=== PATIENT | female | born 1995 | race Two or more races ===

== ENCOUNTER 2017-11-01 02:01 | Emergency (ER) | payer OTHER ==
[2017-11-01] MEDS ORDERED: NORMAL SALINE 1000 ML 1,000 ML IV ONE (03:10)
[2017-11-01] MEDS ORDERED: MORPHINE SULFATE 10 MG/ML INJ IV ONE (03:10)
[2017-11-01] MEDS ORDERED: ONDANSETRON HCL INJ/PF 4 MG/2 ML SDV IV ONE (03:10)
--- NOTE | 2017-11-01 03:11 | ER Document Report ---
ED GI/ - General Chief Complaint: Abdominal Pain Stated Complaint: ABDOMINAL PAIN Time Seen by Provider: 11/01/17 03:03 Notes: Patient is a 22-year-old female who comes emergency department for chief complaint of right lower quadrant pain. She states that pain started at about 5 :30 PM, progressively worsened and became constant. She states that she tried taking stool softeners (she took magnesium citrate), she did have a bowel movement but pain continued to increase. She denies vaginal bleeding or discharge, denies dysuria, denies flank pain, fever, nausea or vomiting. She takes no daily medications. Only past medical history reported is tonsillectomy. TRAVEL OUTSIDE OF THE [place] IN LAST 30 DAYS: No - Related Data Allergies/Adverse Reactions: No Known Allergies Allergy (Unverified 11/01/17 03:11) Past Medical History - General Information source: Patient - Social History Smoking Status: Never Smoker Chew tobacco use (# tins/day): No Frequency of alcohol use: None Drug Abuse: None Lives with: Family Family History: Reviewed & Not Pertinent Patient has suicidal ideation: No Patient has homicidal ideation: No - Medical History Medical History: Negative Renal/ Medical History: Denies: Hx Peritoneal Dialysis Past Surgical History: Reports: Hx Tonsillectomy - Immunizations Immunizations up to date: Yes Hx Diphtheria, Pertussis, Tetanus Vaccination: Yes Review of Systems - Review of Systems Constitutional: No symptoms reported EENT: No symptoms reported Cardiovascular: No symptoms reported Respiratory: No symptoms reported Gastrointestinal: See HPI Genitourinary: No symptoms reported Female Genitourinary: No symptoms reported Musculoskeletal: No symptoms reported Skin: No symptoms reported Hematologic/Lymphatic: No symptoms reported Neurological/Psychological: No symptoms reported Physical Exam - Vital signs Vitals: Temp Pulse Resp BP Pulse Ox 97.6 F 101 H 20 126/64 H 99 11/01/17 02:02 11/01/17 02:02 11/01/17 02:02 11/01/17 02:02 11/01/17 02:02 Interpretation: Normal - General General appearance: Appears well, Alert In distress: None - HEENT Head: Normocephalic, Atraumatic Eyes: Normal Pupils: PERRL - Respiratory Respiratory status: No respiratory distress Chest status: Nontender Breath sounds: Normal Chest palpation: Normal - Cardiovascular Rhythm: Regular Heart sounds: Normal auscultation Murmur: No - Abdominal Inspection: Normal Distension: No distension Bowel sounds: Normal Tenderness: Tender - Patient specifically tender at McBurney's point, this is reproducible. Remaining abdomen is completely benign. No pelvic tenderness noted. No rebound tenderness. Organomegaly: No organomegaly - Back Back: Normal, Nontender. No: Tender - Extremities General upper extremity: Normal inspection, Nontender, Normal ROM, Normal strength General lower extremity: Normal inspection, Nontender, Normal ROM, Normal strength - Neurological Neuro grossly intact: Yes Cognition: Normal Orientation: AAOx4 [place] Coma Scale Eye Opening: Spontaneous [place] Coma Scale Verbal: Oriented [place] Coma Scale Motor: Obeys Commands Mercedes Coma Scale Total: 15 Speech: Normal Cranial nerves: Normal Cerebellar coordination: Normal Motor strength normal: LUE, RUE, LLE, RLE Sensory: Normal - Psychological Associated symptoms: Normal affect, Normal mood - Skin Skin Temperature: Warm Skin Moisture: Dry Skin Color: Normal Course - Re-evaluation Re-evalutation: Patient was specific and reproducible McBurney's point tenderness. Remaining abdomen is benign. CBC, chemistry, urinalysis unremarkable. Patient declines pelvic exam, she also does not report any dysuria, vaginal discharge, or concern about STDs. Decision was made to perform CAT scan to help rule out acute appendicitis. CT showing lymphangitis in the right lower quadrant. Normal appendix. No inflammatory changes otherwise, no acute findings. I discussed this with patient in detail. After discussion decision was made to let the passage of time clarifying the situation, she was treated here for lymph node discomfort with dexamethasone, she will be given Motrin at home, I discussed follow-up and return precautions in detail, patient states satisfaction and agreement. - Vital Signs Vital signs: Temp Pulse Resp BP Pulse Ox 97.8 F 89 20 108/67 97 11/01/17 06:58 11/01/17 06:58 11/01/17 06:58 11/01/17 06:58 11/01/17 06:58 - Laboratory Result Diagrams: 11/01/17 04:00 11/01/17 04:00 Laboratory results interpreted by me: 11/01/17 11/01/17 03:35 04:00 AST 39 H Urine Blood SMALL H Ur Leukocyte Esterase TRACE H Discharge - Discharge Clinical Impression: Right lower quadrant pain Condition: Stable Disposition: HOME, SELF-CARE Additional Instructions: CAT scan examination showing normal appendix, lymphadenitis (inflamed nearby lymph nodes). The exact cause of this is uncertain. You have been treated for this, take Motrin if needed. Return if you worsen including return or worsening pain, vomiting, fever, bloody bowel movements, abdominal distention, or any other concerning symptoms. See additional instructions below. Observation for Appendicitis At this time, the abdominal pain does not seem to be appendicitis. Our next "test" will be passage of time. If you have early appendicitis, signs will appear to help us make the diagnosis. Most of the time, the pain goes away. In these cases, the pain is usually due to a virus in the lymph glands near the appendix, or due to an ovarian cyst or ovulation. Unless the pain is gone, you should come back for a recheck. This is usually done in 8 to 12 hours. Be sure you understand your follow-up instructions. Come back immediately if: (1) the pain becomes much more severe and sharply increases with movement or coughing, (2) vomiting becomes frequent, (3) there is blood in the vomit, urine, or bowel movements, (4) there are shaking chills or fever, or (5) the abdomen becomes more distended or swollen. Prescriptions: Ibuprofen [Motrin 600 mg Tablet] 600 mg PO Q8HP PRN #24 tablet PRN Reason:
[2017-11-01 04:05] LABS: APPEARANCE,URINE SLIGHTLY-CLOUDY; BILIRUBIN,URINE NEGATIVE (NEGATIVE); COLOR,URINE YELLOW; GLUCOSE, URINE NEGATIVE (NEGATIVE); KETONES,URINE NEGATIVE (NEGATIVE); LEUKOCYTE ESTERASE,URINE TRACE (NEGATIVE); NITRITE,URINE NEGATIVE (NEGATIVE); PROTEIN,URINE NEGATIVE (NEGATIVE); URINE SPECIFIC GRAVITY 1.013; UROBILINOGEN,URINE NEGATIVE mg/dL (<2.0)
[2017-11-01 04:11] LABS: ABSOLUTE BASOPHILS # (AUTO) 0.1 10^3/uL (0.0-0.2); ABSOLUTE EOSINOPHILS # (AUTO) 0.1 10^3/uL (0.0-0.6); ABSOLUTE LYMPHOCYTES (AUTO) 3.4 10^3/uL (0.5-4.7); ABSOLUTE MONOCYTES (AUTO) 0.8 10^3/uL (0.1-1.4); ABSOLUTE NEUT (AUTO) 4.8 10^3/uL (1.7-8.2); BASOPHILS % (AUTO) 0.6 % (0-2); EOSINOPHILS % (AUTO) 1.5 % (0-6); HEMATOCRIT 41.3 % (36.0-47.0); HEMOGLOBIN 14.1 g/dL (12.0-15.5); LYMPHOCYTES % (AUTO) 37.2 % (13-45); MEAN CORPUSCULAR HEMOGLOBIN 29.3 pg (27.0-33.4); MEAN CORPUSCULAR HGB CONC 34.1 g/dL (32.0-36.0); MEAN CORPUSCULAR VOLUME 86 fl (80-97); MONOCYTES % (AUTO) 8.4 % (3-13); PLATELET COUNT 314 10^3/uL (150-450); RED CELL DISTRIBUTION WIDTH 13.6 % (11.5-14.0); SEGMENTED NEUTROPHILS % (AUTO) 52.3 % (42-78); TOTAL CELLS COUNTED % (AUTO) 100 %; WHITE BLOOD COUNT 9.1 10^3/uL (4.0-10.5)
[2017-11-01 04:36] LABS: ALANINE AMINOTRANSFERASE 48 U/L (9-52); ALBUMIN 4.6 g/dL (3.5-5.0); ALKALINE PHOSPHATASE 78 U/L (38-126); ANION GAP 13 (5-19); ASPARTATE AMINO TRANSFERASE 39 U/L (14-36); BILIRUBIN,DIRECT 0.2 mg/dL (0.0-0.4); BILIRUBIN,TOTAL 0.4 mg/dL (0.2-1.3); BLOOD UREA NITROGEN 14 mg/dL (7-20); CARBON DIOXIDE 26 mmol/L (22-30); CHLORIDE 104 mmol/L (98-107); GLUCOSE 94 mg/dL (75-110); POTASSIUM 3.9 mmol/L (3.6-5.0); SODIUM 142.5 mmol/L (137-145); TOTAL PROTEIN 7.4 g/dL (6.3-8.2)
--- NOTE | 2017-11-01 05:57 | RADIOLOGY REPORT (SQ) ---
EXAM DESCRIPTION: CT ABD/PELVIS WITH IV ORAL CLINICAL HISTORY: 22 years Female, RLQ pain COMPARISON: None. TECHNIQUE: 100 mL Isovue-370 IV contrast. Coronal and sagittal reformat. This exam was performed according to our departmental dose-optimization program, which includes automated exposure control, adjustment of the mA and/or kV according to patient size and/or use of iterative reconstruction technique. FINDINGS: Mild mesenteric lymphadenopathy of the right mid-lower abdomen includes a 2.0 x 0.9 cm lymph node, image 39 of series 601. Normal appendix. No significant free fluid. Normal gallbladder. Mild hepatic steatosis. Inferior thorax, pancreas, spleen, adrenals, renal system, gastrointestinal tract, pelvic organs, vasculature, and musculoskeleton appear otherwise unremarkable. IMPRESSION: Mild mesenteric lymphadenitis.
[2017-11-01] MEDS ORDERED: DEXAMETHASONE SOD PHOS INJ 10 MG/1 ML VIAL IV ONE (06:14)
[2017-11-01 07:02] VITALS: BP 108/67
== END 2017-11-01 07:02 | disposition home or self-care (01) ==
LOC: ER 02:01
DX: R10.31 Right lower quadrant pain (principal)
CPT/HCPCS: 99284; 96361; 96374; 96375; 36415; 85025; 81025; 80053; 81001; 74177; J2270; J2405; J7030; J1100

== ENCOUNTER 2017-12-04 18:22 | Emergency (ER) | payer OTHER ==
--- NOTE | 2017-12-04 19:36 | ER Document Report ---
ED Medical Screen (RME) - General Chief Complaint: Vag Bleeding, +preg <12wks Stated Complaint: VAGINAL BLEEDING Time Seen by Provider: 12/04/17 19:32 Notes: pt is 8 weeks . started light spotting today. now has clots. no pain. had nml US 2 weeks ago per pt. TRAVEL OUTSIDE OF THE [place] IN LAST 30 DAYS: No - Related Data Allergies/Adverse Reactions: No Known Allergies Allergy (Unverified 11/01/17 03:11) Past Medical History - General Last Menstrual Period: 10/08/17 - Social History Chew tobacco use (# tins/day): No Frequency of alcohol use: None Drug Abuse: None Renal/ Medical History: Denies: Hx Peritoneal Dialysis Past Surgical History: Reports: Hx Tonsillectomy - Immunizations Immunizations up to date: Yes Hx Diphtheria, Pertussis, Tetanus Vaccination: Yes Physical Exam - Vital signs Vitals: Temp Pulse Resp BP Pulse Ox 98.3 F 86 20 132/89 H 98 12/04/17 18:35 12/04/17 18:35 12/04/17 18:35 12/04/17 18:35 12/04/17 18:35 Course - Vital Signs Vital signs: Temp Pulse Resp BP Pulse Ox 98.3 F 86 20 132/89 H 98 12/04/17 18:35 12/04/17 18:35 12/04/17 18:35 12/04/17 18:35 12/04/17 18:35
[2017-12-04 20:20] LABS: ABSOLUTE EOSINOPHILS # (AUTO) 0.1 10^3/uL (0.0-0.6); ABSOLUTE LYMPHOCYTES (AUTO) 2.9 10^3/uL (0.5-4.7); ABSOLUTE MONOCYTES (AUTO) 0.8 10^3/uL (0.1-1.4); ABSOLUTE NEUT (AUTO) 6.7 10^3/uL (1.7-8.2); BASOPHILS % (AUTO) 0.2 % (0-2); EOSINOPHILS % (AUTO) 0.6 % (0-6); HEMATOCRIT 40.2 % (36.0-47.0); LYMPHOCYTES % (AUTO) 27.7 % (13-45); MEAN CORPUSCULAR HEMOGLOBIN 29.9 pg (27.0-33.4); MEAN CORPUSCULAR HGB CONC 34.9 g/dL (32.0-36.0); MEAN CORPUSCULAR VOLUME 86 fl (80-97); MONOCYTES % (AUTO) 7.9 % (3-13); PLATELET COUNT 304 10^3/uL (150-450); RED BLOOD COUNT 4.69 10^6/uL (3.72-5.28); RED CELL DISTRIBUTION WIDTH 13.9 % (11.5-14.0); SEGMENTED NEUTROPHILS % (AUTO) 63.6 % (42-78); TOTAL CELLS COUNTED % (AUTO) 100 %; WHITE BLOOD COUNT 10.5 10^3/uL (4.0-10.5)
[2017-12-04 20:31] LABS: APPEARANCE,URINE SLIGHTLY-CLOUDY; BILIRUBIN,URINE NEGATIVE (NEGATIVE); COLOR,URINE YELLOW; GLUCOSE, URINE NEGATIVE (NEGATIVE); KETONES,URINE 20 mg/dL (NEGATIVE); LEUKOCYTE ESTERASE,URINE TRACE (NEGATIVE); NITRITE,URINE NEGATIVE (NEGATIVE); PROTEIN,URINE NEGATIVE (NEGATIVE); URINE SPECIFIC GRAVITY 1.024; UROBILINOGEN,URINE NEGATIVE mg/dL (<2.0)
[2017-12-04 20:46] LABS: ALANINE AMINOTRANSFERASE 38 U/L (9-52); ALBUMIN 4.7 g/dL (3.5-5.0); ALKALINE PHOSPHATASE 60 U/L (38-126); ANION GAP 12 (5-19); ASPARTATE AMINO TRANSFERASE 19 U/L (14-36); BILIRUBIN,DIRECT 0.3 mg/dL (0.0-0.4); BILIRUBIN,TOTAL 0.3 mg/dL (0.2-1.3); BLOOD UREA NITROGEN 8 mg/dL (7-20); CALCIUM 10.1 mg/dL (8.4-10.2); CARBON DIOXIDE 23 mmol/L (22-30); CHLORIDE 104 mmol/L (98-107); GLUCOSE 85 mg/dL (75-110); POTASSIUM 4.2 mmol/L (3.6-5.0); SODIUM 138.6 mmol/L (137-145); TOTAL PROTEIN 7.4 g/dL (6.3-8.2)
--- NOTE | 2017-12-04 21:53 | RADIOLOGY REPORT (SQ) ---
EXAM DESCRIPTION: U/S OB TRANSVAGINAL W/O DOP COMPLETED DATE/TIME: 12/04/2017 9:43 pm REASON FOR STUDY: preg/bleeding COMPARISON: None. TECHNIQUE: Transvaginal static and realtime grayscale images acquired of the pelvis. Additional emanuel cted spectral and color Doppler images recorded. All images stored on PACs. bHCG: Pending LIMITATIONS: None. FINDINGS: FETUS: EGA: 7 week 4 day KELTON: 07/19/2018 EFW: Not applicable. FHR: 123 beats per minute. MONROE: Adequate amount. PLACENTA: Developing. No hemorrhage. CERVICAL LENGTH: 3.3 cm. Closed. UTERUS: No masses. RIGHT ADNEXA: Ovary not identified. No adnexal free fluid. No adnexal masses. LEFT ADNEXA: Ovary not identified. No adnexal free fluid. No adnexal masses. FREE FLUID: None. OTHER: No other significant finding. IMPRESSION: LIVING INTRAUTERINE . ESTIMATED GESTATIONAL AGE:7 week 4 day Trimester of : First trimester - 0 to 13 weeks. TECHNICAL DOCUMENTATION: JOB ID: [id number] [employer]- All Rights Reserved
--- NOTE | 2017-12-04 22:25 | ER Document Report ---
ED General - General Chief Complaint: Vag Bleeding, +preg <12wks Stated Complaint: VAGINAL BLEEDING Time Seen by Provider: 12/04/17 19:32 Mode of Arrival: Ambulatory Information source: Patient Notes: 22-year-old female presents with complaints of bright red blood per vagina. Patient notes that symptoms have been ongoing now for a few days she denies any significant pain denies any large clots. Patient notes she is approximately 7 weeks . Patient notes blood type is RhoGam positive TRAVEL OUTSIDE OF THE [place] IN LAST 30 DAYS: No - HPI Onset: This morning Onset/Duration: Sudden Quality of pain: No pain Severity: Mild Pain Level: Denies Associated symptoms: Other Exacerbated by: Denies Relieved by: Denies Similar symptoms previously: No Recently seen / treated by doctor: No - Related Data Allergies/Adverse Reactions: No Known Allergies Allergy (Unverified 11/01/17 03:11) Past Medical History - General Last Menstrual Period: 10/08/17 - Social History Smoking Status: Former Smoker Cigarette use (# per day): No Chew tobacco use (# tins/day): No Smoking Education Provided: No Frequency of alcohol use: None Drug Abuse: None Family History: Reviewed & Not Pertinent Patient has suicidal ideation: No Patient has homicidal ideation: No Renal/ Medical History: Denies: Hx Peritoneal Dialysis Past Surgical History: Reports: Hx Tonsillectomy - Immunizations Immunizations up to date: Yes Hx Diphtheria, Pertussis, Tetanus Vaccination: Yes Review of Systems - Review of Systems Notes: REVIEW OF SYSTEMS: CONSTITUTIONAL : Denies fever, chills, or sweats. Denies recent illness. EENT: Denies eye, ear, throat, or mouth pain or symptoms. Denies nasal or sinus congestion or discharge. Denies throat, tongue, or mouth swelling or difficulty swallowing. CARDIOVASCULAR: Denies chest pain. Denies palpitations or racing or irregular heart beat. Denies ankle edema. RESPIRATORY: Denies cough, cold, or chest congestion. Denies shortness of breath, difficulty breathing, or wheezing. GASTROINTESTINAL: Denies abdominal pain or distention. Denies nausea, vomiting , or diarrhea. Denies blood in vomitus, stools, or per rectum. Denies black, tarry stools. Denies constipation. GENITOURINARY: Denies difficulty urinating, painful urination, burning, frequency, blood in urine, or discharge. FEMALE GENITOURINARY: Admits vaginal bleeding MUSCULOSKELETAL: Denies back or neck pain or stiffness. Denies joint pain or swelling. SKIN: Denies rash, lesions or sores. HEMATOLOGIC : Denies easy bruising or bleeding. LYMPHATIC: Denies swollen, enlarged glands. NEUROLOGICAL: Denies confusion or altered mental status. Denies passing out or loss of consciousness. Denies dizziness or lightheadedness. Denies headache. Denies weakness or paralysis or loss of use of either side. Denies problems with gait or speech. Denies sensory loss, numbness, or tingling. Denies seizures. PSYCHIATRIC: Denies anxiety or stress. Denies depression, suicidal ideation, or homicidal ideation. ALL OTHER SYSTEMS REVIEWED AND NEGATIVE. PHYSICAL EXAMINATION: GENERAL: Well-appearing, well-nourished and in no acute distress. HEAD: Atraumatic, normocephalic. EYES: Pupils equal round and reactive to light, extraocular movements intact, conjunctiva are normal. ENT: Nares patent, oropharynx clear without exudates. Moist mucous membranes. NECK: Normal range of motion, supple without lymphadenopathy LUNGS: Breath sounds clear to auscultation bilaterally and equal. No wheezes rales or rhonchi. HEART: Regular rate and rhythm without murmurs ABDOMEN: Soft, nontender, nondistended abdomen. No guarding, no rebound. No masses appreciated. Female : deferred Musculoskeletal: Normal range of motion, no pitting or edema. No cyanosis. NEUROLOGICAL: Cranial nerves grossly intact. Normal speech, normal gait. Normal sensory, motor exams PSYCH: Normal mood, normal affect. SKIN: Warm, Dry, normal turgor, no rashes or lesions noted. Dictation was performed using [employer] voice recognition software Physical Exam - Vital signs Vitals: Temp Pulse Resp BP Pulse Ox 98.3 F 86 20 132/89 H 98 12/04/17 18:35 12/04/17 18:35 12/04/17 18:35 12/04/17 18:35 12/04/17 18:35 Course - Re-evaluation Re-evalutation: 12/05/17 05:48 Patient lab work ultrasound noted no significant abnormality, 7 week 4 day is noted, I did have a long conversation with patient regarding threatened miscarriage versus a normal with vaginal bleeding. Patient states she understands and will return if symptoms worsen. After performing a Medical Screening Examination, I estimate there is LOW risk for ACUTE APPENDICITIS, BOWEL OBSTRUCTION, ACUTE CHOLECYSTITIS, PERFORATED DIVERTICULITIS, INCARCERATED HERNIA, PANCREATITIS, PELVIC INFLAMMATORY DISEASE, PERFORATED ULCER, ECTOPIC , or TUBO-OVARIAN ABSCESS, thus I consider the discharge disposition reasonable. Also, there is no evidence or peritonitis , sepsis, or toxicity. I have reevaluated this patient multiple times and no significant life threatening changes are noted. The patient and I have discussed the diagnosis and risks, and we agree with discharging home with close follow-up with the understanding that symptoms and presentations can change. We also discussed returning to the Emergency Department immediately if new or worsening symptoms occur. We have discussed the symptoms which are most concerning (e.g., bloody stool, fever, changing or worsening pain, vomiting) that necessitate immediate return. - Vital Signs Vital signs: Temp Pulse Resp BP Pulse Ox 97.6 F 82 18 131/64 H 98 12/04/17 22:34 12/04/17 22:34 12/04/17 22:34 12/04/17 22:34 12/04/17 22:34 - Laboratory Result Diagrams: 12/04/17 20:08 12/04/17 20:08 Laboratory results interpreted by me: 12/04/17 20:08 Urine Ketones 20 H Ur Leukocyte Esterase TRACE H Urine Ascorbic Acid 40 H Urine HCG, Qual POSITIVE H - Diagnostic Test Radiology reviewed: Image reviewed, Reports reviewed - Report given to patient Discharge - Discharge Clinical Impression: Threatened miscarriage in early , Vaginal bleeding in Condition: Stable Disposition: HOME, SELF-CARE Instructions: Threatened Miscarriage ([facility]) Referrals: [facility] [Provider Group] - Follow up in 3-5 days
[2017-12-04 22:38] VITALS: BP 131/64
== END 2017-12-04 22:38 | disposition home or self-care (01) ==
LOC: ER 18:22
DX: O20.0 Threatened abortion (principal); Z3A.01 Less than 8 weeks gestation of pregnancy; Z87.891 Personal history of nicotine dependence
CPT/HCPCS: 36415; 76817; 80053; 81001; 81025; 85025; 86900; 86901; 99284

== ENCOUNTER 2019-08-06 23:11 | Emergency (ER) | payer OTHER ==
[2019-08-07 01:13] LABS: ABSOLUTE EOSINOPHILS # (AUTO) 0.1 10^3/uL (0.0-0.6); ABSOLUTE LYMPHOCYTES (AUTO) 3.1 10^3/uL (0.5-4.7); ABSOLUTE MONOCYTES (AUTO) 0.7 10^3/uL (0.1-1.4); ABSOLUTE NEUT (AUTO) 3.6 10^3/uL (1.7-8.2); BASOPHILS % (AUTO) 0.5 % (0-2); EOSINOPHILS % (AUTO) 1.1 % (0-6); HEMATOCRIT 40.3 % (36.0-47.0); HEMOGLOBIN 13.6 g/dL (12.0-15.5); LYMPHOCYTES % (AUTO) 41.1 % (13-45); MEAN CORPUSCULAR HEMOGLOBIN 28.3 pg (27.0-33.4); MEAN CORPUSCULAR HGB CONC 33.8 g/dL (32.0-36.0); MEAN CORPUSCULAR VOLUME 84 fl (80-97); MONOCYTES % (AUTO) 9.3 % (3-13); PLATELET COUNT 282 10^3/uL (150-450); RED BLOOD COUNT 4.82 10^6/uL (3.72-5.28); RED CELL DISTRIBUTION WIDTH 14.1 % (11.5-14.0); TOTAL CELLS COUNTED % (AUTO) 100 %; WHITE BLOOD COUNT 7.5 10^3/uL (4.0-10.5)
[2019-08-07 01:27] LABS: ALBUMIN 4.6 g/dL (3.5-5.0); ALKALINE PHOSPHATASE 69 U/L (38-126); ANION GAP 10 (5-19); ASPARTATE AMINO TRANSFERASE 23 U/L (14-36); BILIRUBIN,DIRECT 0.1 mg/dL (0.0-0.4); BILIRUBIN,TOTAL 0.4 mg/dL (0.2-1.3); BLOOD UREA NITROGEN 11 mg/dL (7-20); CALCIUM 9.9 mg/dL (8.4-10.2); CARBON DIOXIDE 24 mmol/L (22-30); CHLORIDE 107 mmol/L (98-107); GLUCOSE 104 mg/dL (75-110); POTASSIUM 4.3 mmol/L (3.6-5.0); TOTAL PROTEIN 7.5 g/dL (6.3-8.2)
[2019-08-07 01:30] LABS: APPEARANCE,URINE CLEAR; BILIRUBIN,URINE NEGATIVE (NEGATIVE); COLOR,URINE YELLOW; GLUCOSE, URINE NEGATIVE (NEGATIVE); KETONES,URINE NEGATIVE (NEGATIVE); LEUKOCYTE ESTERASE,URINE TRACE (NEGATIVE); NITRITE,URINE NEGATIVE (NEGATIVE); PROTEIN,URINE NEGATIVE (NEGATIVE); URINE SPECIFIC GRAVITY 1.023; UROBILINOGEN,URINE NEGATIVE mg/dL (<2.0)
--- NOTE | 2019-08-07 02:18 | ER Document Report ---
ED GI/ - General Chief Complaint: Abdominal Pain Stated Complaint: LOWER RIGHT ABDOMINAL PAIN,NAUSEA Time Seen by Provider: 08/07/19 02:17 Mode of Arrival: Ambulatory Information source: Patient Notes: HISTORY OF PRESENT ILLNESS: Patient is a 24-year-old female with a past medical history of "swollen appendix that they only gave me antibiotics for" who presents with recurrent right lower quadrant pain that began several days ago. Patient reports symptoms are similar to her previous encounter, she is concerned she has appendicitis. Location: Right lower quadrant Onset: Multiple days ago Alleviation: None Provocation: Movement Quality: Aching Radiation: None Severity: Currently mild, moderate at worst Timing: Constant History of abdominal surgery: None Associated symptoms: Denies fevers or chills, no vomiting or diarrhea, no constipation Last bowel movement: Today and normal Last menstrual period: This month REVIEW OF SYSTEMS: CONSTITUTIONAL : Denies fever or chills, no sweats. Denies recent illness. EENT: Denies eye, ear, throat, or mouth pain or symptoms. Denies nasal or sinus congestion. CARDIOVASCULAR: Denies chest pain. Denies swelling of the legs. RESPIRATORY: Denies cough, cold, or chest congestion. Denies shortness of breath or difficulty breathing. Denies wheezing. GASTROINTESTINAL: Positive for abdominal pain. Denies nausea, vomiting, or diarrhea. Denies constipation. GENITOURINARY: Denies difficulty urinating, painful urination, burning, freq uency, or blood in urine. FEMALE GENITOURINARY: Denies vaginal bleeding, abnormal or irregular periods. MUSCULOSKELETAL: Denies neck or back pain or joint pain or swelling. SKIN: Denies rash or skin lesions. HEMATOLOGIC : Denies easy bruising or bleeding. LYMPHATIC: Denies swollen, enlarged glands. NEUROLOGICAL: Denies altered mental status or loss of consciousness. Denies headache. Denies weakness or paralysis or loss of use of either side. Denies problems with gait or speech. Denies sensory or motor loss. PSYCHIATRIC: Denies anxiety or stress or depression. All other systems reviewed and negative. PHYSICAL EXAMINATION: GENERAL: Well-appearing, well-nourished and in no acute distress. HEAD: Atraumatic, normocephalic. No scalp deformity, depression, or crepitance. EYES: Pupils are 3 mm and equal/round/reactive to light, extraocular movements intact, sclera anicteric, conjunctiva are normal. ENT: Nares patent bilaterally, oropharynx. Moist mucous membranes. No tonsil hypertrophy. NECK: Normal range of motion, supple without lymphadenopathy. LUNGS: Breath sounds present, equal, and clear to auscultation bilaterally. No wheezes, rales, or rhonchi. HEART: Regular rate and rhythm without murmurs, rubs, or gallops. 2+ peripheral pulses. Normal capillary refill. ABDOMEN: Soft, mild right lower quadrant tenderness without rebound or guarding, nondistended. Normoactive bowel sounds. No guarding, no rebound. No masses appreciated. BACK: Normal contour, no midline tenderness. Rectal exam deferred. GENITAL/PELVIC: Deferred. EXTREMITIES: Normal range of motion, no pitting or edema. No cyanosis. NEUROLOGICAL: No focal neurological deficits. Moves all extremities spontaneously and on command. PSYCH: Normal mood, normal affect. No suicidal thoughts/ideations. No homicidal thoughts/ideations. No hallucinations. SKIN: Warm, dry, normal turgor, no rashes or lesions noted. ASSESSMENT AND PLAN: This patient is a 24-year-old female who presents with recurrent right lower quadrant tenderness possibility of ureterolithiasis versus acute appendicitis versus colitis. 1. Will obtain labs, urine, and CT scan of the abdomen/pelvis. 2. Will give IV fluids with morphine and reassess. TRAVEL OUTSIDE OF THE [place] IN LAST 30 DAYS: No - HPI Patient complains to provider of: Abdominal pain Onset: This evening Timing/Duration: Sudden Quality of pain: Achy Severity at maximum: Moderate Severity in ED: Mild Pain Level: 1 Location: RLQ Vaginal bleeding (Compared to normal period): None Sexual history: Inactive Associated symptoms: Nausea Exacerbated by: Movement Relieved by: Denies Similar symptoms previously: Yes Recently seen / treated by doctor: No - Related Data Allergies/Adverse Reactions: No Known Allergies Allergy (Verified 08/06/19 23:54) Past Medical History - General Information source: Patient - Social History Smoking Status: Former Smoker Chew tobacco use (# tins/day): No Frequency of alcohol use: Rare Drug Abuse: None Lives with: Family Family History: Reviewed & Not Pertinent Patient has suicidal ideation: No Patient has homicidal ideation: No - Past Medical History Cardiac Medical History: Reports: None Pulmonary Medical History: Reports: None EENT Medical History: Reports: None Neurological Medical History: Reports: None Endocrine Medical History: Reports: None Renal/ Medical History: Reports: None. Denies: Hx Peritoneal Dialysis GI Medical History: Reports: None Musculoskeletal Medical History: Reports None Skin Medical History: Reports None Psychiatric Medical History: Reports: None Traumatic Medical History: Reports: None Past Surgical History: Reports: Hx Tonsillectomy - Immunizations Immunizations up to date: Yes Hx Diphtheria, Pertussis, Tetanus Vaccination: Yes Review of Systems - Review of Systems Constitutional: No symptoms reported EENT: No symptoms reported Cardiovascular: No symptoms reported Respiratory: No symptoms reported Gastrointestinal: No symptoms reported, See HPI, Abdominal pain, Nausea Genitourinary: No symptoms reported Female Genitourinary: No symptoms reported Musculoskeletal: No symptoms reported Skin: No symptoms reported Hematologic/Lymphatic: No symptoms reported Neurological/Psychological: No symptoms reported -: Yes All other systems reviewed and negative Physical Exam - Vital signs Vitals: Temp Pulse Resp BP Pulse Ox 98.8 F 83 17 137/78 H 98 08/06/19 23:26 08/06/19 23:26 08/06/19 23:26 08/06/19 23:26 08/06/19 23:26 Interpretation: Normal Course - Re-evaluation Re-evalutation: 08/07/19 04:26 CT scan is negative. Labs are unremarkable. Will discharge the patient home with strict return precautions and follow-up with primary care. All results were explained to and discussed with the patient, and all questions addressed and answered. The patient voices both understanding and agreeing with the plan. - Vital Signs Vital signs: Temp Pulse Resp BP Pulse Ox 97.8 F 72 14 130/86 H 98 08/07/19 04:37 08/07/19 04:37 08/07/19 04:37 08/07/19 04:37 08/06/19 23:26 - Laboratory Result Diagrams: 08/07/19 00:52 08/07/19 00:52 Laboratory results interpreted by me: 08/07/19 08/07/19 08/07/19 00:52 00:52 00:52 RDW 14.1 H Lipase 20.6 L Ur Leukocyte Esterase TRACE H - Diagnostic Test Radiology reviewed: Image reviewed, Reports reviewed Discharge - Discharge Clinical Impression: Abdominal pain Qualifiers: Abdominal location: right lower quadrant Qualified Code(s): R10.31 - Right lower quadrant pain Condition: Good Disposition: HOME, SELF-CARE Instructions: Abdominal Pain ([facility]) Additional Instructions: You have been evaluated in the Emergency Department for abdominal pain. While here, you had blood work and CAT scan that were normal and it is now safe to be discharged home. Please follow-up with your primary physician as instructed in one week to be rechecked. Return to the Emergency Department if you experience worsening pain, high fevers, uncontrollable nausea, or any other concerning symptoms. Prescriptions: Ondansetron [Zofran Odt 4 mg Tablet] 1 tab PO Q8HP PRN #30 tab.rapdis PRN Reason: For Nausea/Vomiting Diclofenac Sodium 75 mg PO BID #30 tablet. Print Language: Tunisian
[2019-08-07] MEDS ORDERED: MORPHINE SULFATE 10 MG/ML INJ IV ONE (02:45)
[2019-08-07] MEDS ORDERED: ONDANSETRON HCL INJ/PF 4 MG/2 ML SDV IV ONE (02:45)
--- NOTE | 2019-08-07 04:14 | RADIOLOGY REPORT (SQ) ---
CLINICAL HISTORY: RLQ pain, HCG NEG COMPARISON: None. TECHNIQUE: CT ABDOMEN PELVIS WITH IV CONTRAST on 08/07/2019 2:45 AM CDT This exam was performed according to our departmental dose-optimization program, which includes automated exposure control, adjustment of the mA and/or kV according to patient size and/or use of iterative reconstruction technique. FINDINGS: Lower lungs are clear. Abdomen: The liver is normal in appearance. There is no biliary dilatation. Gallbladder is normal in appearance. The pancreas and spleen are normal in appearance. The adrenal glands and kidneys are unremarkable. Abdominal aorta is normal in course and caliber without aneurysm. There is no free air. There is no retroperitoneal adenopathy. Pelvis: There is no bowel obstruction. Urinary bladder is unremarkable. There is no free fluid. Uterus is normal in size. Appendix is normal. Skeleton: There are no acute osseous findings. No suspicious bony lesions. IMPRESSION: No acute inflammatory process. Normal appendix. No renal or ureteral calculi.
[2019-08-07 04:39] VITALS: BP 130/86
== END 2019-08-07 04:37 | disposition home or self-care (01) ==
LOC: ER 23:11
DX: R10.31 Right lower quadrant pain (principal); R11.0 Nausea; Z87.891 Personal history of nicotine dependence
CPT/HCPCS: 36415; 83690; 85025; 81025; 80053; 81001; 74177; J2270; J2405; 96372; 96374; 99284